=== PATIENT | male | born 1990 | race Caucasian/White ===

== ENCOUNTER 2019-06-01 23:20 | Emergency (ER) | payer BC ==
[~2019-06-01] VITALS: Ht 172.7 cm; Wt 70.5 kg
[2019-06-01] MEDS ORDERED: CLARITIN 1010 MG/TAB PO (23:33)
[2019-06-02 00:59] LABS: BASO # 0.1 (0.0-0.2); BASO % 1.3 % (0.0-2.0); EOS # 0.2 (0.0-0.7); EOS % 3.1 % (0-4.0); GRAN # 3.4 (1.4-6.5); GRAN % 53.1 % (42.2-75.2); HEMATOCRIT 44.9 % (42.0-52.0); LYMPH # 2.2 (1.2-3.4); LYMPH % 34.3 % (20.0-51.0); MEAN CELL VOLUME 91 fl (80.0-100.0); MEAN CORPUSCULAR HEMOGLOBIN 30 pg (27.0-31.0); MEAN CORPUSCULAR HGB CONC 33 g/dl (33.0-37.0); MEAN PLATELET VOLUME 12.2 fl (7.4-10.4); MONO # 0.5 (0.1-0.6); MONO % 7.7 % (1.7-9.3); PLATELET COUNT 211 K/mm3 (130-400); RED BLOOD COUNT 4.96 M/mm3 (4.20-5.60); REDCELL DISTRIBUTION WIDTH-CV 11.9 % (11.5-14.5)
[2019-06-02 01:05] LABS: ALBUMIN 4.8 gm/dL (3.5-5.0); BILIRUBIN,TOTAL 0.4 mg/dL (0.0-1.0); CALCIUM 9.7 mg/dL (8.4-10.2); CREATININE, serum 1.02 (0.66-1.25); POTASSIUM 4.2 mmol/L (3.4-5.0); TOTAL PROTEIN 8.4 gm/dL (6.4-8.2)
[2019-06-02 01:24] LABS: MONOSCREEN NEGATIVE
[2019-06-02] MEDS ORDERED: TUSS PO (01:45)
[2019-06-02] MEDS ORDERED: PREDNISONE20 MG PO (01:45)
[2019-06-02] MEDS ORDERED: DOXYCYCLINE 10100 MG PO (01:48)
[2019-06-02 02:00] VITALS: BP 141/88; PULSE 90; TEMP 97.6
== END 2019-06-02 02:00 | disposition home or self-care (01) ==
LOC: COL.ER 23:20
PROVIDERS: Nurse Practitioner Primary Care
DX: J40 Bronchitis, not specified as acute or chronic (principal); Z90.89 Acquired absence of other organs

== ENCOUNTER 2023-10-28 18:20 | Emergency (ER) | payer BC ==
[~2023-10-28] VITALS: Ht 172.7 cm; Wt 68.0 kg
[~2023-10-28 18:20] MED LIST: CLARITIN 1010 MG/TAB PO; DOXYCYCLINE 10100 MG PO; PREDNISONE20 MG PO; TUSS PO
[2023-10-28 18:29] VITALS: BP 154/97; TEMP 97.9
[2023-10-28 18:52] VITALS: PULSE 83
== END 2023-10-28 18:52 | disposition home or self-care (01) ==
LOC: COL.ER 18:20
DX: S00.01XA Abrasion of scalp, initial encounter (principal); W26.9XXA Contact with unspecified sharp object(s), initial encounter; Y93.89 Activity, other specified; Y92.009 Unspecified place in unspecified non-institutional (private) residence as the place of occurrence of the external cause